=== PATIENT | male | born 1990 | race Hispanic/Latino ===

== ENCOUNTER 2023-08-14 14:09 | Emergency (ER) | payer OTHER ==
[~2023-08-14] VITALS: Ht 177.8 cm; Wt 132.4 kg
[2023-08-14] MEDS ORDERED: VIBRAMYCIN100 M2 PO (15:49)
[2023-08-14 16:01] VITALS: BP 159/102
[2023-08-14 16:10] VITALS: BP 159/102
== END 2023-08-14 16:08 | disposition home or self-care (01) | DRG 603 ==
LOC: ED 14:09
DX: L03.115 Cellulitis of right lower limb (principal); S81.831A Puncture wound without foreign body, right lower leg, initial encounter; B95.61 Methicillin susceptible Staphylococcus aureus infection as the cause of diseases classified elsewhere; E66.9 Obesity, unspecified; W45.0XXA Nail entering through skin, initial encounter